=== PATIENT | female | born 1960 | race American Indian/Alaskan Native ===

== ENCOUNTER 2017-09-14 11:20 | Emergency (ER) | payer MEDICARE ==
[2017-09-14] MEDS ORDERED: MOTRIN PO ONE (12:28)
--- NOTE | 2017-09-14 14:11 | XRay Report ---
RIGHT SHOULDER, 3 VIEWS: HISTORY: right shoulder pain, and decreased range of motion. Normal bone mineralization. Mild osteoarthritic changes are identified. No evidence for fracture, dislocation, ligamentous injury or bone lesion. The soft tissues are unremarkable. IMPRESSION: Mild osteoarthritis. No acute process.
--- NOTE | 2017-09-14 14:12 | XRay Report ---
RIGHT HAND, 3 views: History: Pain and swelling after fall. Normal bone mineralization. No acute osseous injury or joint pathology is detected. There is diffuse soft tissue swelling. IMPRESSION: Soft tissue swelling. No acute bony injury is identified.
[2017-09-14] MEDS ORDERED: ULTRAM PO ONE (16:23)
--- NOTE | 2017-09-14 16:25 | Emergency Department Report ---
ED Upper Extremity Inj HPI - General Chief Complaint: Fall Stated Complaint: SHOULDER PAIN Time Seen by Provider: 09/14/17 15:52 Source: patient Mode of arrival: Ambulatory Limitations: No Limitations - History of Present Illness Initial Comments: This is a 57-year-old -[place] female who presents with right shoulder and right hand pain status post fall this morning. Patient reports tripping over cat this morning around 8:30 at home. She hit the wall and stood up. Decided to follow-up with her primary care provider Dr. Renee who referred her to the emergency room for further evaluation because she was unable to raise right arm. Patient has a history of frequent falls, arthritis, herniated disc, scoliosis, and neuropathy. She reports pain is 10 out of 10 on pain scale and worse with movement. There is swelling to right hand and painful to move digits. Patient denies numbness or tingling, deformity, chest pain, loss of consciousness, nausea or vomiting, and fever. MD Complaint: Injury to:: right, shoulder, hand -: This morning Time: 08:30 Other Extremity Injury: Hand: Right, Shoulder: Right Other Injuries: none Handedness: right Place: home Severity scale (0 -10): 10 Improves With: none Worsens With: movement of extremity Context: fall Associated Symptoms: denies other symptoms - Related Data Previous Rx's Medication Instructions Recorded Last Taken Type Acetaminophen/Codeine [Tylenol 1 tab PO Q6H PRN #15 tab 09/14/17 Unknown Rx /Codeine # 3 tab] Cyclobenzaprine HCl [Flexeril 5 MG 5 mg PO TID PRN #15 tab 09/14/17 Unknown Rx TAB] Allergies Allergy/AdvReac Type Severity Reaction Status Date / Time No Known Allergies Allergy Unverified 09/14/17 11:29 ED Review of Systems ROS: Stated complaint: SHOULDER PAIN Other details as noted in HPI Constitutional: denies: chills, fever Respiratory: denies: cough, shortness of breath, wheezing Cardiovascular: denies: chest pain, palpitations Gastrointestinal: denies: abdominal pain, nausea, diarrhea Musculoskeletal: joint swelling (right hand), arthralgia (right shoulder and right hand). denies: back pain Skin: denies: rash, lesions Neurological: denies: headache, weakness, paresthesias Psychiatric: denies: anxiety, depression ED Past Medical Hx - Past Medical History Hx Arthritis: Yes Additional medical history: unsteady gait,frequent falls, L4,L5 disc herniation, scoliosis,neuropathy - Surgical History Additional Surgical History: ovarian ca-hysterectomy - Social History Smoking Status: Current Every Day Smoker Substance Use Type: Alcohol - Medications Home Medications: Home Medications Medication Instructions Recorded Confirmed Last Taken Type Acetaminophen/Codeine [Tylenol 1 tab PO Q6H PRN #15 tab 09/14/17 Unknown Rx /Codeine # 3 tab] Cyclobenzaprine HCl [Flexeril 5 MG 5 mg PO TID PRN #15 tab 09/14/17 Unknown Rx TAB] ED Physical Exam - General Limitations: No Limitations General appearance: alert, in no apparent distress, obese - Respiratory Respiratory exam: Present: normal lung sounds bilaterally. Absent: respiratory distress - Cardiovascular Cardiovascular Exam: Present: regular rate, normal rhythm. Absent: systolic murmur, diastolic murmur, rubs, gallop - GI/Abdominal GI/Abdominal exam: Present: soft, normal bowel sounds. Absent: organomegaly, mass - Extremities Exam Extremities exam: Present: normal capillary refill. Absent: pedal edema, joint swelling, calf tenderness - Expanded Upper Extremity Exam Right Shoulder Exam: Present: tenderness, tenderness over AC joint. Absent: full ROM (patient unable to tolerate active and passive range of motion), swelling, abrasion, laceration, ecchymosis, deformity, crepidus, dislocation, erythema Upper Arm exam: Present: normal inspection, full ROM Elbow exam: Present: normal inspection, full ROM Forearm Wrist exam: Present: normal inspection, full ROM Hand Wrist exam: Present: tenderness, swelling (swelling and tenderness of the MCP joint of second through fifth phalanx). Absent: laceration, ecchymosis, deformity, crepidus, dislocation, erythema, amputation, nail avulsion, subungual hematoma Neuro motor exam: Present: wrist extension intact, thumb opposition intact, thumb IP flexion intact, thumb adduction intact, fingers 2-5 abduction intact Vascular: Present: normal capillary refill, radial pulse - Neurological Exam Neurological exam: Present: alert, oriented X3 - Psychiatric Psychiatric exam: Present: normal affect, normal mood - Skin Skin exam: Present: warm, dry, intact, normal color. Absent: rash ED Course Vital Signs 09/14/17 09/14/17 09/14/17 11:25 12:33 16:43 Temperature 98 F Pulse Rate 68 Respiratory 18 18 16 Rate Blood Pressure 155/101 Blood Pressure [Left] O2 Sat by Pulse 98 Oximetry 18 17:26 Temperature 98.6 F Pulse Rate 68 Respiratory 18 Rate Blood Pressure Blood Pressure 142/76 [Left] O2 Sat by Pulse 98 Oximetry ED Medical Decision Making - Radiology Data Radiology results: report reviewed, image reviewed RIGHT SHOULDER, 3 VIEWS: HISTORY: right shoulder pain, and decreased range of motion. Normal bone mineralization. Mild osteoarthritic changes are identified. No evidence for fracture, dislocation, ligamentous injury or bone lesion. The soft tissues are unremarkable. IMPRESSION: Mild osteoarthritis. No acute process. RIGHT HAND, 3 views: History: Pain and swelling after fall. Normal bone mineralization. No acute osseous injury or joint pathology is detected. There is diffuse soft tissue swelling. IMPRESSION: Soft tissue swelling. No acute bony injury is identified. - Medical Decision Making This is a 57 y.o. female presents with right shoulder pain and hand from falling this morning. Patient was examined by me. Blood pressure elevated, will repeat after pain medication. Patient given tramadol 50 mg po once in ER. XR of right shoulder and hand obtained and read by radiologist. Right shoulder, Mild osteoarthritis. No acute process. Right hand, Soft tissue swelling. No acute bony injury is identified. Physical findings susceptible of muscle sprain/strain. Christian wrap and sling applied to right upper extremity. Patient informed of results. Start tylenol #3 and cyclobenzaprine for pain. Follow-up with orthopedic surgery and primary care provider. Plan discussed with patient to discharge home and treat outpatient. She agrees with ER plan. Patient discharged home in stable condition. Critical care attestation.: If time is entered above; I have spent that time in minutes in the direct care of this critically ill patient, excluding procedure time. ED Disposition Clinical Impression: Right hand pain Sprain, MCP, hand, right Qualifiers: Encounter type: initial encounter Finger: middle finger Qualified Code(s): S63.652A - Sprain of metacarpophalangeal joint of right middle finger, initial encounter Right shoulder pain Qualifiers: Chronicity: acute Qualified Code(s): M25.511 - Pain in right shoulder Strain of right shoulder Qualifiers: Encounter type: initial encounter Qualified Code(s): S46.911A - Strain of unspecified muscle, fascia and tendon at shoulder and upper arm level, right arm , initial encounter Disposition: DC-01 TO HOME OR SELFCARE Is pt being admited?: No Does the pt Need Aspirin: No Condition: Stable Instructions: Muscle Strain (ED), Hand Sprain (ED) Additional Instructions: Rest Use ice or heat on affected area for 20 minutes and off for 2 hours. Take pain medication as needed for pain. Don't drive or operate heavy machinery while taking muscle relaxers because they may cause drowsiness. Follow up with Primary Care Provider in 2-3 days. Prescriptions: Acetaminophen/Codeine [Tylenol /Codeine # 3 tab] 1 tab PO Q6H PRN #15 tab PRN Reason: Pain , Severe (7-10) Cyclobenzaprine HCl [Flexeril 5 MG TAB] 5 mg PO TID PRN #15 tab PRN Reason: Muscle Spasm Referrals: KEYANA RENEE MD [Primary Care Provider] - 3-5 Days ARCENIO DURON MD [Staff Physician] - 3-5 Days [facility] [Provider Group] - 3-5 Days Forms: Work/School Release Form(ED) Time of Disposition: 17:12 Print Language: SERBIAN
[2017-09-14 17:29] VITALS: BP 142/76
== END 2017-09-14 17:30 | disposition home or self-care (01) ==
LOC: ED 11:20
DX: S63.652A Sprain of metacarpophalangeal joint of right middle finger, initial encounter (principal); S46.911A Strain of unspecified muscle, fascia and tendon at shoulder and upper arm level, right arm, initial encounter; M19.90 Unspecified osteoarthritis, unspecified site; F17.200 Nicotine dependence, unspecified, uncomplicated; Z90.710 Acquired absence of both cervix and uterus; W01.10XA Fall on same level from slipping, tripping and stumbling with subsequent striking against unspecified object, initial encounter; Y93.89 Activity, other specified; Y99.8 Other external cause status; Y92.009 Unspecified place in unspecified non-institutional (private) residence as the place of occurrence of the external cause